=== PATIENT | male | born 1965 ===

== ENCOUNTER 2016-09-24 01:45 | Emergency (ER) | payer MEDICAID ==
[2016-09-24] MEDS ORDERED: NS 1,000 ML IV ONE ×2 (01:51→02:47)
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
[2016-09-24 01:58] VITALS: TEMP 97.5
--- NOTE | 2016-09-24 02:21 | CPEKG ---
Heart Rate: 65 RR Interval: 923 P-R Interval: 160 QRSD Interval: 98 QT Interval: 428 QTC Interval: 445 P [place]: 60 QRS [place]: 87 T Wave [place]: 53 EKG Severity - NORMAL ECG - EKG Impression: SINUS RHYTHM Electronically Signed By: Alvin Goins 24-Sep-2016 06:48:04
[2016-09-24 02:23] LABS: % IMMATURE GRANULYOCYTES 0.5 % (0.0-1.1); ABSOLUTE IMMATURE GRANULOCYTES 0.08 10^3/uL (0.00-0.10); ADD DIFF? NO; ADD MORPH? NO; ADD SCAN? NO; ATYPICAL LYMPHOCYTE FLAG 0 (0-99); FRAGMENT RBC FLAG 0 (0-99); HEMATOCRIT 41.7 % (40.0-51.0); HEMOGLOBIN 14.3 g/dL (13.7-17.5); LEFT SHIFT FLG 0 (0-99); LIPEMIA HEMOLYSIS FLAG 90 (0-99); MEAN CELL HEMOGLOBIN 32.1 pg (27.9-34.1); MEAN CELL HEMOGLOBIN CONCENTR. 34.3 g/dL (32.4-36.7); MEAN CELL VOLUME 93.7 fL (81.5-99.8); MEAN PLATELET VOLUME 10.2 fL (8.7-11.7); PLATELET CLUMPS FLAG 10 (0-99); PLATELET COUNT 239 10^3/uL (150-400); RED BLOOD CELL COUNT 4.45 10^6/uL (4.40-6.38); RED CELL DISTRIBUTION WIDTH 12.6 % (11.5-15.2)
[2016-09-24 02:33] LABS: ANION GAP 15 mEq/L (8-16); CALCIUM 9.6 mg/dL (8.5-10.4); CARBON DIOXIDE 19 mEq/l (22-31); CHLORIDE 109 mEq/L (97-110); ETHANOL SERUM < 10 mg/dL (0-10); GLOMERULAR FILTRATION RATE > 60; GLUCOSE 120 mg/dL (70-100); POTASSIUM 4.2 mEq/L (3.5-5.2); SALICYLATE < 1.0 mg/dL (2.0-20.0); SODIUM 143 mEq/L (134-144)
[2016-09-24 02:52] LABS: CK-MB INTERPRETATION NEGATIVE (NEGATIVE)
[2016-09-24 03:59] VITALS: BP 103/66; PULSE 75; RESP 19; O2SAT 94
== END 2016-09-24 04:32 | disposition home or self-care (01) ==
DX: F19.920 Other psychoactive substance use, unspecified with intoxication, uncomplicated (principal)
CPT/HCPCS: G0480

== ENCOUNTER 2016-09-24 06:31 | Emergency (ER) | payer MEDICAID ==
[2016-09-24] MEDS ORDERED: NS 1,000 ML IV ONE ×3 (06:32→14:28)
[2016-09-24] MEDS ORDERED: LORazepam 2 MG/ML INJ IVP ONE (06:32)
--- NOTE | 2016-09-24 06:37 | EDPHY ---
H & P Source: Patient, Police - Medical/Surgical History Other PMH: unable to obtain HPI/ROS: HPI CHIEF COMPLAINT: Acute agitation, acute psychosis, disturbance to public HISTORY OF PRESENT ILLNESS: This patient 51-year-old male previously seen by myself in the emergency room after he is brought in much earlier in the evening after was make contact with police and was tazed. He was found in somebody's driveway, standing naked in yelling and agitated. He is in the emergency room for multiple hours during the evening. Where he had a workup for acute agitation and admitted doing a large amount of heroin possibly other drugs this evening. He did have a trauma workup as he had abrasions to his face he had a negative CT scan of his head as well as neck. He had a normal EKG. As blood work was reassuring except for mild leukocytosis and a slightly elevated CK. He was come most time throughout his emergency room stay however at time of discharge became acutely agitated and aggressive with staff and police had to be called for him to be removed from the emergency room. Police were called again to make contact with him as he was causing a public disturbance or yelling, agitated, and appears to be responding to internal stimuli. Upon arrival to the emergency room is with police escort. He is acutely agitated he has rambling pressured speech and nonsensical. He appears to be responding to stimuli. During last ER visit earlier in the night were unable to get a drug screen. Patient need to provide a drug screen during this ER visit. Past Medical History: From previous chart he denies medical history Past Surgical History: denies surgical history Social History: admits to doing heroin possibly other drugs, homeless, lives in his car. Family History: Noncontributory ROS REVIEW OF SYSTEMS: somewhat limited due the patient's acute psychosis. Exam Constitutional Acutely psychotic, agitated, yelling triage nursing summary reviewed, vital signs reviewed. Eyes normal conjunctivae and sclera, EOMI, PERRLA. HENT moist mucus membranes, no epistaxis, neck supple/ no meningismus, no raccoon eyes. Respiratory clear to auscultation bilaterally, normal breath sounds, no respiratory distress, no wheezing. Cardiovascular rate normal, regular rhythm, no murmur, no edema, distal pulses normal. Gastrointestinal soft, non-tender, no rebound, no guarding, normal bowel sounds, no distension, no pulsatile mass. Genitourinary no CVA tenderness. Musculoskeletal no midline vertebral tenderness, full range of motion, no calf swelling, no tenderness of extremities, no meningismus, good pulses, neurovascularly intact. Skin abrasions to forehead and face. pink, warm, & dry, no rash, skin atraumatic. Neurologic awake, alert and oriented x 3, AAOx3, moves all 4 extremities equally, motor intact, sensory intact, CN II-XII intact, normal cerebellar, normal vision, pressured speech Psychiatric Acute psychosis, agitated Heme/Lymph/Immune no lymphadenopathy. Differential Diagnosis: includes but is not limited to in a particular order acute psychosis, acute agitation, drug intoxication, excited delirium, possibly methamphetamine abuse. Medical Decision Making: patient be placed on M1 hold due to acute agitation post likely acute psychosis, Possible drug intoxication methamphetamine. Re-evaluation: Plan for this patient IV establishment, IV fluid bolus 1 L, repeat blood work , obtain a drug screen, 2 mg IV Ativan for sedation. patient be placed on M1 hold 0700: This patient be signed over Dr. Ruiz at 7:00 a.m.. 0644AM: Patient received 2 mg IV Ativan is getting 1 L normal saline at this time. He is much more calm. However still psychotic. 0200AM: Patient has been re-evaluated he is, cooperative. He is lucid. He has had a mental health evaluation does not meet inpatient psychiatric criteria. He is, cooperative. Denies want hurt himself or anybody else. He did not acutely psychotic anymore. Patient has good safety plan in place. I will DC his mental health hold. Be discharged from the emergency room. He does understand if he feels any time suicidal wants to hurt somebody or hurt himself he should return emergency room immediately. (Alvin Goins) Constitutional: Initial Vital Signs Temperature (C) 36.8 C 09/24/16 06:37 Heart Rate 81 09/24/16 06:37 Respiratory Rate 21 H 09/24/16 06:37 Blood Pressure 131/87 H 09/24/16 06:37 O2 Sat (%) 93 09/24/16 06:37 O2 Delivery Mode Room Air Allergies/Adverse Reactions: Unable to Assess Allergy (Unverified 09/24/16 02:03) Home Medications: Medication Instructions Recorded Unobtainable 09/24/16 Medical Decision Making ED Course/Re-evaluation: 0700: I assumed care of the patient at shift change. Patient awaiting mental health evaluation. 0800: Patient is sleeping. He is on an M1 hold for psychosis. 1130: Patient is becoming agitated. I ordered 5mg Haldol IV. (Raeann Ruiz) 1500 care assumed by me from Dr. Ruiz pending mental health evaluation. 1999 patient is now medically cleared. Evaluation has been requested. 230 patient signed out to Dr. Goins pending mental health evaluation. (Ryan Kirk) - Data Points Laboratory Results: Laboratory Results 09/24/16 08:40 09/24/16 08:40 09/24/16 16:30 Urine Opiates Screen NEGATIVE (NEGATIVE) Urine Barbiturates NEGATIVE (NEGATIVE) Ur Phencyclidine Scrn NEGATIVE (NEGATIVE) Ur Amphetamine Screen NEGATIVE (NEGATIVE) U Benzodiazepines Scrn NON-NEGATIVE H (NEGATIVE) Urine Cocaine Screen NEGATIVE (NEGATIVE) U Marijuana (THC) Screen NON-NEGATIVE H (NEGATIVE) Medications Given: Discontinued Medications Haloperidol Lactate (Haldol Injection) 5 mg IVP EDNOW ONE Stop: 09/24/16 11:30 Last Admin: 09/24/16 11:45 Dose: 5 mg Sodium Chloride (Ns) 1,000 mls @ 0 mls/hr IV ONCE ONE PRN Reason: Wide Open Stop: 09/24/16 06:33 Last Admin: 09/24/16 06:42 Dose: 1,000 mls Sodium Chloride (Ns) 1,000 mls @ 0 mls/hr IV ONCE ONE; Wide Open PRN Reason: Protocol Stop: 09/24/16 14:29 Last Admin: 09/24/16 14:31 Dose: 1,000 mls Sodium Chloride (Ns) 1,000 mls @ 0 mls/hr IV ONCE ONE; Wide Open PRN Reason: Protocol Stop: 09/24/16 14:29 Last Admin: 09/24/16 16:09 Dose: 1,000 mls Lorazepam (Ativan Injection) 2 mg IVP EDNOW ONE Stop: 09/24/16 06:33 Last Admin: 09/24/16 06:39 Dose: 2 mg Olanzapine (Olanzapine) 5 mg PO ONCE ONE Stop: 09/24/16 06:46 Last Admin: 09/24/16 06:52 Dose: 5 mg Departure - Departure Disposition: Home, Routine, Self-Care Clinical Impression: Acute psychosis Condition: Fair Instructions: Polysubstance Abuse (ED) Referrals: Patient,NotPresent [Primary Care Provider] - As per Instructions
[2016-09-24] MEDS ORDERED: OLANZapine 5 MG TAB PO ONE (06:45)
[2016-09-24 08:58] LABS: % IMMATURE GRANULYOCYTES 0.4 % (0.0-1.1); ABSOLUTE IMMATURE GRANULOCYTES 0.07 10^3/uL (0.00-0.10); ADD DIFF? NO; ADD MORPH? NO; ADD SCAN? NO; ATYPICAL LYMPHOCYTE FLAG 0 (0-99); FRAGMENT RBC FLAG 0 (0-99); HEMATOCRIT 38.5 % (40.0-51.0); HEMOGLOBIN 13.3 g/dL (13.7-17.5); LEFT SHIFT FLG 0 (0-99); LIPEMIA HEMOLYSIS FLAG 90 (0-99); MEAN CELL HEMOGLOBIN 32.5 pg (27.9-34.1); MEAN CELL HEMOGLOBIN CONCENTR. 34.5 g/dL (32.4-36.7); MEAN CELL VOLUME 94.1 fL (81.5-99.8); MEAN PLATELET VOLUME 10.1 fL (8.7-11.7); PLATELET CLUMPS FLAG 10 (0-99); PLATELET COUNT 215 10^3/uL (150-400); RED BLOOD CELL COUNT 4.09 10^6/uL (4.40-6.38); RED CELL DISTRIBUTION WIDTH 12.6 % (11.5-15.2)
[2016-09-24 09:10] LABS: ANION GAP 7 mEq/L (8-16); CALCIUM 8.7 mg/dL (8.5-10.4); CARBON DIOXIDE 19 mEq/l (22-31); CHLORIDE 114 mEq/L (97-110); CREATININE 0.8 mg/dL (0.7-1.3); GLOMERULAR FILTRATION RATE > 60; GLUCOSE 79 mg/dL (70-100); POTASSIUM 4.3 mEq/L (3.5-5.2); SODIUM 140 mEq/L (134-144)
[2016-09-24] MEDS ORDERED: HALOPERIDOL LACT 5 MG/ML INJ IVP ONE (11:29)
[2016-09-24 23:18] VITALS: RESP 16; TEMP 98.8
[2016-09-25 02:30] VITALS: BP 119/80; PULSE 52; O2SAT 97
== END 2016-09-25 02:54 | disposition home or self-care (01) ==
DX: F23 Brief psychotic disorder (principal); E86.9 Volume depletion, unspecified
CPT/HCPCS: 80305; 96374; G0480; J2060